=== PATIENT | female | born 1945 | race Caucasian/White ===

== ENCOUNTER → 2018-07-13 09:06 | Outpatient (CLI) | payer MEDICARE, OTHER, SELFPAY ==
[2018-07-13 10:16] LABS: Add Manual Diff / Slide Review NO; Basophils Percent Auto 0.5 % (0-2); Eosinophils Percent Auto 2.8 % (2-4); Hematocrit 39.8 % (36-46); Hemoglobin 13.4 g/dL (12.0-16.0); Lymphocytes Percent Auto 21.1 % (25-40); Mean Corpuscular HGB Conc 33.6 % (30-36); Mean Corpuscular Hemoglobin 30.3 PG (26-34); Monocytes Percent Auto 6.4 % (3-14); Neutrophils Absolute Auto 4700 /uL (3000-5900); Neutrophils Percent Auto 69.2 % (50-75); Platelet Count 322 X10^3/uL (150-400); Red Blood Cell Count 4.42 X10^6/uL (4.0-5.2); Red Cell Distribution Width 13.3 % (11.6-14.8); White Blood Cell Count 6.8 X10^3/uL (4.5-11.0)
[2018-07-13 10:49] LABS: Alanine Aminotransferase 27 IU/L (9-52); Albumin 4.4 g/dL (3.5-5.0); Albumin Globulin Ratio 1.2 (1.0-2.8); Alkaline Phosphatase 125 U/L (38-126); Aspartate Aminotransferase 20 IU/L (14-36); BUN Creatinine Ratio 20.8 (6-22); Bilirubin Total 0.5 mg/dL (0.2-1.3); Blood Urea Nitrogen 25 mg/dL (7-17); Calcium 9.3 mg/dL (8.4-10.2); Carbon Dioxide 33 mmol/L (22-32); Chloride 102 mmol/L (98-107); Cholesterol 203 mg/dL (140-199); Estimated Glomerular Filt Rate 43.9 mL/min (>60); Globulin 3.8 g/dL (1.7-4.1); Glucose 95 mg/dL (80-110); HDL Cholesterol 50 mg/dL (40-60); HEMOLYSIS < 15 (0-50); LDL Cholesterol Calculated 124 mg/dL (<100); Sodium 145 mmol/L (137-145); Total Protein 8.2 g/dL (6.3-8.2); Triglycerides 147 mg/dL (35-150)
[2018-07-13 11:11] LABS: TSH w/ Reflex to FT4 2.56 uIU/mL (0.47-4.68)
== END ==
PROVIDERS: PCP Family Medicine; Visit Provider Family Medicine
DX: I10 Essential (primary) hypertension (principal)
CPT/HCPCS: 36415; 80053; 80061; 84443; 85025

== ENCOUNTER → 2019-09-17 10:50 | Outpatient (CLI) | payer MEDICARE, OTHER, SELFPAY ==
--- NOTE | 2019-09-24 08:41 | P.PFT.S_ITS ---
Pulmonary Function Test Referral & Results Date Patient Seen: 09/17/19 Requesting provider: Roberto Bruner Results: The spirometry demonstrates an FVC of 1.69 L which is 57% of predicted. The FEV1 was measured at 1.40 L which is 63% of predicted. The FEV1/FVC ratio was 83 which is 110% of predicted. Following the administration of bronchodilator there was very limited evidence of any benefit but there is an 18% improvement in FEF 25-75%. Lung volumes show an SVC of 1.60 L which is 55% of predicted. The diffusing capacity was measured at 13.32 which is 52% of predicted. The maximum voluntary ventilation was severely reduced Interpretation: This study demonstrates moderately severe obstructive lung disease based on reduction FEV1 with perhaps very minimal evidence of benefit following bro nchodilator as above. There is also moderately severe reduction in SVC suggesting moderately severe restrictive lung disease There is also a significant reduction in diffusing capacity suggesting si gnificant disease at the capillary alveolar level Altogether this is consistent with a diagnosis of COPD Compared to PFTs performed in February 2013, current spirometry suggests slight decline in FEV1 more significant decline in SVC suggesting more significant restrictive lung disease and similar numbers for diffusing capacity
== END ==
PROVIDERS: PCP Family Medicine; Visit Provider Family Medicine
DX: R06.02 Shortness of breath (principal)
CPT/HCPCS: 94060; 94726; 94729

== ENCOUNTER → 2019-09-24 09:14 | Outpatient (CLI) | payer MEDICARE, OTHER, SELFPAY ==
--- NOTE | 2019-09-24 09:44 | DI.RAD.S_ITS ---
PROCEDURE: XR CHEST 2V INDICATIONS: cough short of breath TECHNIQUE: 2 views of the chest were acquired. COMPARISON: [facility], , CHEST 2 VIEW, 10/08/2012, 11:11. FINDINGS: Surgical changes and devices: None. Lungs and pleura: Scattered subsegmental atelectasis and/or scarring. No focal consolidation. No pleural effusions or pneumothorax. Mediastinum: Mediastinal contours are normal. Heart size is normal. Bones and chest wall: No suspicious bony abnormalities. Scoliosis and scattered discogenic changes. Soft tissues appear unremarkable. IMPRESSION: No acute disease Dictated by: Jackson Hills M.D. on 09/24/2019 at 11:15 Approved by: Jackson Hills M.D. on 09/24/2019 at 11:19
[2019-09-24 10:05] LABS: Add Manual Diff / Slide Review NO; Basophils Absolute Auto 100 /uL (0-100); Basophils Percent Auto 0.7 % (0-2); Eosinophils Absolute Auto 300 /uL (0-450); Eosinophils Percent Auto 4.7 % (2-4); Hematocrit 35.4 % (36-46); Hemoglobin 11.6 g/dL (12.0-16.0); Lymphocytes Absolute Auto 800 /uL (1100-4500); Lymphocytes Percent Auto 10.9 % (25-40); Mean Corpuscular HGB Conc 32.7 % (30-36); Mean Corpuscular Hemoglobin 29.4 PG (26-34); Monocytes Absolute Auto 500 /uL (0-900); Monocytes Percent Auto 7.2 % (3-14); Neutrophils Absolute Auto 5400 /uL (1500-7000); Neutrophils Percent Auto 76.5 % (50-75); Platelet Count 299 X10^3/uL (150-400); Red Blood Cell Count 3.93 X10^6/uL (4.0-5.2); Red Cell Distribution Width 13.5 % (11.6-14.8); White Blood Cell Count 7.1 X10^3/uL (4.5-11.0)
[2019-09-24 10:22] LABS: B Type Natriuretic Peptide < 100 (<100)
[2019-09-24 10:57] LABS: Alanine Aminotransferase 30 IU/L (<35); Albumin 4.1 g/dL (3.5-5.0); Albumin Globulin Ratio 1.1 (1.0-2.8); Alkaline Phosphatase 326 U/L (38-126); Aspartate Aminotransferase 30 IU/L (14-36); BUN Creatinine Ratio 16.1 (6-22); Bilirubin Total 0.5 mg/dL (0.2-1.3); Blood Urea Nitrogen 29 mg/dL (7-17); Calcium 9.4 mg/dL (8.4-10.2); Carbon Dioxide 27 mmol/L (22-32); Chloride 101 mmol/L (98-107); Cholesterol 211 mg/dL (140-199); Estimated Glomerular Filt Rate 27.4 mL/min (>60); Globulin 3.7 g/dL (1.7-4.1); Glucose 111 mg/dL (80-110); HDL Cholesterol 39 mg/dL (40-60); HEMOLYSIS < 15 (0-50); LDL Cholesterol Calculated 140 mg/dL (<100); Potassium 5.2 mmol/L (3.4-5.1); Sodium 137 mmol/L (137-145); Total Protein 7.8 g/dL (6.3-8.2); Triglycerides 158 mg/dL (35-150)
[2019-09-24 11:28] LABS: TSH w/ Reflex to FT4 2.95 uIU/mL (0.47-4.68)
== END ==
PROVIDERS: PCP Family Medicine; Visit Provider Family Medicine
DX: I10 Essential (primary) hypertension (principal); R06.02 Shortness of breath; R05 Cough
CPT/HCPCS: 36415; 71046; 80053; 80061; 83880; 84443; 85025

== ENCOUNTER → 2019-10-05 07:55 | Outpatient (CLI) | payer MEDICARE, OTHER, SELFPAY ==
--- NOTE | 2019-10-05 07:57 | DI.ECHO.S_ITS ---
[facility]---------+ [facility] +---------+ : : [address] : : : : [id number] : : : : Phone: [phone] Echocardiogram Report + + :Name: BLANCA AGUILERA Study Date: 10/05/2019 Height: 64 in : :[facility] Weight: 200 lb : : Gender: Female BSA: 2.0 m2 : :: 1945 Age: 74 yrs BP: 136/84 mmHg: :Reason For Study: Hypertension : :Ordering Physician: Dr. Mejia : :Franc Performed By: Prieto Ward : :Referring: FLOYD CURTIS : + + Interpretation Summary The left ventricle is normal in size. The ejection fraction is estimated to be 60-65%. The right ventricle is normal in size and function. No significant valvular pathology seen. Procedure: A two-dimensional transthoracic echocardiogram with color flow and Doppler was performed. The study quality was technically adequate. There is no prior echocardiogram noted for this patient. The patient was in normal sinus rhythm during the exam. Left Ventricle: The left ventricle is normal in size. Proximal septal thickening is noted. There is no echo evidence for significant left ventricular outflow tract obstruction. There is no thrombus. Left ventricular systolic function is normal. The ejection fraction is estimated to be 60-65%. Left ventricular wall motion is normal. Diastolic parameters suggest a relaxation abnormality of the left ventricle, consistent with probable normal filling pressures. Right Ventricle: The right ventricle is normal in size and function. Atria: The left atrium is borderline dilated. Right atrial size is normal. The interatrial septum is intact with no evidence for an atrial septal defect. Mitral Valve: The mitral valve leaflets appear mildly thickened, but open well. There is mild mitral annular calcification. The mitral valve chordae are thickened and/or calcified. There is trace mitral regurgitation. Aortic Valve: The aortic valve is trileaflet. There is mild aortic valve sclerosis. There is discrete nodular thickening of the non- coronary cusp. There is no aortic valve stenosis. There is trace aortic regurgitation. Tricuspid Valve: The tricuspid valve is normal in structure and function. There is trace tricuspid regurgitation. Pulmonary artery pressures cannot be estimated because of the lack of a measurable TR jet velocity. Pulmonic Valve: The pulmonic valve is not well visualized. There is trace pulmonic regurgitation. Great Vessels: The aortic root is normal size. The dimensions of the ascending aorta are normal. The pulmonary artery is normal size. The inferior vena cava was not visualized. Pericardium/ Pleura There is no pericardial effusion. There is no pleural effusion. MMode/2D Measurements & Calculations LVIDd: 4.2 cm LVOT diam: 1.9 cm LVIDs: 2.5 cm Ao root diam: 3.0 cm FS: 40.7 % EPSS: 0.57 cm IVSd: 1.2 cm LVPWd: 1.1 cm LV sinclair. diameter/BSA (cm/m^2): 2.1 LV sys. diameter/BSA (cm/m^2): 1.3 LA A2 area: 20.1 cm2 RA long axis: 4.0 cm LA A4 area: 19.3 cm2 RA area: 11.5 cm2 LA length (vol): 5.1 cm RA vol: 27.9 ml LA vol: 64.0 ml RA : 14.3 ml/m2 LA vol index: 32.7 ml/m2 TAPSE: 2.1 cm Doppler Measurements & Calculations Ao V2 max: 117.0 cm/sec LVOT Max Niall: 104.4 cm/sec Ao V2 mean: 85.1 cm/sec LV V1 max P.4 mmHg Ao max P.5 mmHg LV V1 VTI: 26.2 cm Ao mean P.3 mmHg PRESLEY(I,D): 2.7 cm2 Ao V2 VTI: 28.3 cm PRESLEY(V,D): 2.6 cm2 sev ratio: 0.93 PRESLEY indexed to BSA (cm^2/m^2): 1.4 MV E max niall: 71.5 cm/sec PA V2 max: 76.6 cm/sec MV A max niall: 90.8 cm/sec PA V2 mean: 54.7 cm/sec MV E/A: 0.79 PA mean P.4 mmHg Med Peak E' Niall: 6.1 cm/sec PA Accel Time: 0.12 sec E/E' med: 11.7 Lat Peak E' Niall: 8.2 cm/sec E/E' lat: 8.7 E/e' average: 10.2 MV dec time: 0.19 sec SV(LVOT): 75.3 ml Reading Physician:01:22 PM
--- NOTE | 2019-10-05 08:05 | DI.CT.S_ITS ---
PROCEDURE: CT CHEST HIGH RESOLUTION INDICATIONS: chronic cough and interstitial restriction TECHNIQUE: Noncontrast 1.0 and 5.0 mm thick contiguous axial sections from the pulmonary apex to the posterior costophrenic angles, with 7 mm thick coronal and sagittal MIP reformats. 1 mm thick dynamic expiratory images acquired through the upper, mid, and lower lungs. 1.0 mm thick axial sections acquired from the tina to the posterior costophrenic angles in the prone end-inspiration position. For radiation dose reduction, the following was used: automated exposure control, adjustment of mA and/or kV according to patient size. COMPARISON: [facility], , CHEST 2 VIEW, 10/08/2012, 11:11. [facility], , XR CHEST 2V, 09/24/2019, 9:41. FINDINGS: Image quality: Excellent. Lungs: Subpleural septal thickening and early pulmonary fibrosis. No air trapping or bronchiectasis. No acute pulmonary opacity. No pleural effusion or pneumothorax. Pleura: No pleural effusions or pneumothorax. Mediastinum: Heart size is normal. No pericardial effusion. Thoracic aorta and central pulmonary arteries are normal in size. Esophagus is normal in caliber. There is a small hiatal hernia. Bones and chest wall: No suspicious bony lesions. No vertebral body compression fractures. There is a 1 cm nodule in the right thyroid lobe and a 4 mm in the left thyroid lobe. Abdomen: Small indeterminate low density nodules are noted in spleen. IMPRESSION: 1.Subpleural septal thickening and early pulmonary fibrosis suggesting interstitial pneumonia such as UIP. 2. Bilateral thyroid nodules. Thyroid ultrasound is suggested for followup. 3. Small indeterminate hypodensities in spleen. Statistically, these are probably cysts. Dictated by: Audrey Vail M.D. on 10/05/2019 at 16:20 Approved by: Audrey Vail M.D. on 10/05/2019 at 18:07
== END ==
PROVIDERS: PCP Family Medicine; Visit Provider Family Medicine
DX: I35.8 Other nonrheumatic aortic valve disorders (principal); R05 Cough; J84.10 Pulmonary fibrosis, unspecified; R06.02 Shortness of breath; I10 Essential (primary) hypertension; K44.9 Diaphragmatic hernia without obstruction or gangrene; E04.2 Nontoxic multinodular goiter
CPT/HCPCS: 71250; 93306

== ENCOUNTER → 2019-10-19 13:34 | Outpatient (CLI) | payer MEDICARE, OTHER, SELFPAY ==
--- NOTE | 2019-10-19 13:37 | DI.NM.S_ITS ---
PROCEDURE: NM PIERRE PERF SPECT REST & STR Rest and exercise myocardial perfusion SPECT with gated imaging and ejection fraction RADIOPHARMACEUTICAL: 19.7 mCi Tc-99m sestamibi IV at rest and 26.1 mCi Tc-99m sestamibi IV at peak exercise. A 0-zip-valdzkii was performed. INDICATIONS: sob,htn TECHNIQUE: Radiopharmaceutical was injected at peak stress test, and also at rest. SPECT images were obtained. SPECT myocardial perfusion images were displayed in short axis, horizontal long axis, and vertical long axis views. Gated images were reviewed using [employer] software. COMPARISON: None. CARDIAC STRESS: A standard Benedict treadmill exercise tolerance test was performed by the patient under the supervision of an attending staff. The patient exercised for 2 minutes and 42 seconds; functional aerobic impairment (AIYANA) is +30 %. Hemodynamic data: Patient was tachycardic and hypertensive at baseline with heart rate of 114 bpm and blood pressure of 178/82. There is appropriate blood pressure and heart rate response to exercise stress but with baseline hypertension, the peak exercise blood pressure was 252/98 mmHg. Patient achieved 112% of maximum predicted heart rate at peak exercise and 4.6 METS. Symptoms: Patient had chest pressure with exercise. EKG: No diagnostic EKG changes of ischemia; Occasional PVCs. FINDINGS: Raw data: There is good myocardial labeling by radiotracer. No significant motion artifacts. Ayje-yg-nbija ratio is 0.36 (normal is less than 0.38 for sestamibi tracer, and less than 0.50 for thallium tracer). Left ventricle function: Gated images demonstrate normal left ventricle wall thickening. No segmental wall motion abnormality. No transient ischemic dilation; TID is 0.69 (normal less than 1.3). The left ventricle resting end-diastolic volume is 78 mL. Left ventricle stress ejection fraction is >75%; normal values are above 45%. Myocardial perfusion: There is a small, mild perfusion defect involving the apic septal, apical anterior and mid anterior wall on rest and stress supine which resolves on prone imaging; There is also reduced tracer uptake on mid-apical lateral wall on supine images which resolves on prone imaging. Otherwise there is normal distribution of activity in the left ventricular myocardium. No fixed or reversible perfusion defects. IMPRESSION: -No reversible or fixed defect to indicate ischemia or scar. -Impaired exercise capacity and chest pressure with exercise. -Baseline hypertension with significant hypertension with exercise. -Rapid increase in heart rate and AIYANA of 30% indicate deconditioning. -Artifacts on supine imaging as described above. -Despite no perfusion defect, I believe this is a moderate risk study given poor exercise tolerance and significant hypertension. Dictated by: Uvaldo Pressley M.D. on 10/21/2019 at 16:23 Approved by: Uvaldo Pressley M.D. on 10/21/2019 at 16:35
--- NOTE | 2019-10-19 15:03 | PM.TREADMILL ---
Cardiac Stress Test Report Referral & Results Date Patient Seen: 10/19/19 Requesting provider: Roberto Bruner Indication: Chest pressure, shortness of breath Rest ECG: Unremarkable Procedure Note: Today following both written and verbal informed consent the patient was exercised according to a standard Benedict protocol patient went for a total of 2 minutes 42 seconds achieving a maximum heart rate of 163 maximum systolic blood pressure of 252. This is approximately 4.6 METS. Exercise was terminated at this point because of severe dyspnea and inability the patient to continue or walk any faster. Patient was also given Cardiolite through a previously started Hep-Lock IV by the diagnostic imaging staff approximately 1 minute prior to the cessation of exercise. There are no ST-T segment changes identified Occasional PVC Functional aerobic impairment rates about 30% on the sedentary scale Somewhat hypertensive response to exercise Impression: No ECG evidence of ischemia Limited exercise capacity as above Please see perfusion imaging report as well Please note: Actual ECG tracings can be found in the PACS system.
== END ==
PROVIDERS: PCP Family Medicine; Visit Provider Family Medicine
DX: R07.89 Other chest pain (principal); R06.02 Shortness of breath; I10 Essential (primary) hypertension
CPT/HCPCS: 78452; 93016; 93017; 93018; A9502

== ENCOUNTER → 2019-11-02 16:04 | Outpatient (CLI) | payer MEDICARE, OTHER, SELFPAY ==
--- NOTE | 2019-11-02 16:25 | DI.RAD.S_ITS ---
PROCEDURE: XR KNEE LT 3V INDICATIONS: knee pain TECHNIQUE: 3 views of the knee were acquired. COMPARISON: None. FINDINGS: Bones: No fractures or dislocations. No suspicious bony lesions. Severe medial joint space narrowing. Scattered degenerative subchondral sclerosis and spurring. Soft tissues: No joint effusion. No suspicious soft tissue calcifications. IMPRESSION: Severe left knee joint degeneration, most pronounced the medial compartment. Dictated by: Jackson Hills M.D. on 11/02/2019 at 17:55 Approved by: Jackson Hills M.D. on 11/02/2019 at 17:56
== END ==
PROVIDERS: PCP Family Medicine; Visit Provider Family Medicine
DX: M25.562 Pain in left knee (principal); M17.12 Unilateral primary osteoarthritis, left knee
CPT/HCPCS: 73562

== ENCOUNTER → 2019-11-19 09:08 | Outpatient (CLI) | payer MEDICARE, OTHER, SELFPAY ==
[2019-11-19 11:05] LABS: BUN Creatinine Ratio 12.3 (6-22); Blood Urea Nitrogen 16 mg/dL (7-17); Calcium 9.6 mg/dL (8.4-10.2); Carbon Dioxide 26 mmol/L (22-32); Chloride 104 mmol/L (98-107); Estimated Glomerular Filt Rate 39.9 mL/min (>60); Glucose 114 mg/dL (80-110); HEMOLYSIS < 15 (0-50); Potassium 4.8 mmol/L (3.4-5.1); Sodium 139 mmol/L (137-145)
== END ==
PROVIDERS: PCP Family Medicine; Referring Provider Family Medicine; Visit Provider Family Medicine
DX: N18.3 Chronic kidney disease, stage 3 (moderate) (principal)
CPT/HCPCS: 36415; 80048

== ENCOUNTER → 2020-01-24 14:09 | Outpatient (CLI) | payer MEDICARE, OTHER, SELFPAY ==
[2020-01-24 14:34] LABS: Hematocrit 37.3 % (36-46); Hemoglobin 12.3 g/dL (12.0-16.0); Mean Corpuscular HGB Conc 33.1 % (30-36); Mean Corpuscular Hemoglobin 29.1 PG (26-34); Mean Corpuscular Volume 87.9 fL (80-100); Platelet Count 376 X10^3/uL (150-400); Red Blood Cell Count 4.24 X10^6/uL (4.0-5.2); White Blood Cell Count 7.7 X10^3/uL (4.5-11.0)
[2020-01-24 14:45] LABS: Neutrophils Absolute Manual 6237 /uL (3000-5900); RBC Morphology Normal Morphology; Total Cells Counted 100
[2020-01-24 14:49] LABS: Erythrocyte Sedimentation Rate 59 MM/HR (0-20)
[2020-01-24 15:16] LABS: BUN Creatinine Ratio 23.3 (6-22); Blood Urea Nitrogen 38 mg/dL (7-17); Carbon Dioxide 21 mmol/L (22-32); Chloride 108 mmol/L (98-107); Estimated Glomerular Filt Rate 30.8 mL/min (>60); Glucose 114 mg/dL (80-110); HEMOLYSIS < 15 (0-50); Sodium 138 mmol/L (137-145)
[2020-01-24 16:12] LABS: TSH w/ Reflex to FT4 4.32 uIU/mL (0.47-4.68)
[2020-01-24 17:20] LABS: Creatine Kinase 4863 U/L (30-135)
[2020-01-26 10:36] LABS: ANA Screen, IFA Positive (.)
== END ==
PROVIDERS: PCP Family Medicine; Referring Provider Family Medicine; Visit Provider Family Medicine
DX: J44.9 Chronic obstructive pulmonary disease, unspecified (principal); J84.10 Pulmonary fibrosis, unspecified; M25.50 Pain in unspecified joint; R53.83 Other fatigue; R25.1 Tremor, unspecified; R51 Headache
CPT/HCPCS: 36415; 80048; 82550; 84443; 85025; 85651; 86038; 86140

== ENCOUNTER → 2020-01-27 12:29 | Outpatient (CLI) | payer MEDICARE, OTHER, SELFPAY ==
--- NOTE | 2020-01-27 12:31 | DI.MRI.S_ITS ---
PROCEDURE: MR FEMUR RT WO CON INDICATIONS: weakness/myalgias TECHNIQUE: Noncontrast coronal and sagittal T1 spin echo and STIR; axial T1 spin echo and T2 fast spin echo with fat saturation through the right femur. COMPARISON: [facility], MR, MR FEMUR LT WO CON, 01/27/2020, 13:02. FINDINGS: Image quality: Excellent. Bones: The visualized bone marrow demonstrates normal signal on all sequences. The overlying cortex appears intact. No fractures lines or intra-osseous lesions. Soft tissues: There is diffuse muscle edema involving the right hip adductor compartment primarily involving the adductor longus, adductor brevis, obturator internus muscles. There is also ill-defined edema present within the rectus femoris muscle. No definite asymmetric muscle atrophy identified. Loculated appearing fluid present within the posterior pelvis of unknown etiology or location IMPRESSION: Diffuse muscle edema involving the right rectus femoris, obturator internus, adductor longus and adductor brevis which could be related to posttraumatic strain, denervation, or myositis of unspecified etiology. Please see comparison contralateral left femur MRI for additional findings. Prominent posterior pelvic fluid which could be related to large pelvic cystic lesion versus loculated ascites. This is incompletely evaluated on the current examination and only partially visualized. Recommend followup with dedicated pelvic CT or ultrasound Dictated by: Jackson Hills M.D. on 01/27/2020 at 15:31 Approved by: Jackson Hills M.D. on 01/27/2020 at 15:36
--- NOTE | 2020-01-27 12:31 | DI.MRI.S_ITS ---
PROCEDURE: MR FEMUR LT WO CON INDICATIONS: weakness/myalgias TECHNIQUE: Noncontrast coronal and sagittal T1 spin echo and STIR; axial T1 spin echo and T2 fast spin echo with fat saturation through the left femur. COMPARISON: None. FINDINGS: Image quality: Excellent. Bones: The visualized bone marrow demonstrates normal signal on all sequences. The overlying cortex appears intact. No fractures lines or intra-osseous lesions. Soft tissues: There is diffuse muscle edema involving the hip adductor compartment, including the adductor longus, brevis bilaterally. There is asymmetric muscle edema present within the left adductor aminata, compared to the right. No definite muscle atrophy is seen. The sciatic nerve grossly unremarkable. Within the visualized pelvis, there is large amount of loculated posterior pelvic fluid versus cystic lesion which is incompletely evaluated. IMPRESSION: Bilateral diffuse muscle edema primarily involving the hip adductor musculature, including the adductor longus and brevis muscles bilaterally, and the left adductor aminaat. Differential includes posttraumatic strain, denervation, myositis of unclear origin Loculated appearing fluid present within the visualized pelvis which is incompletely evaluated and technically indeterminate. A cystic neoplastic lesion cannot be excluded, versus loculated ascites, or potentially within bowel loop. Recommend further evaluation with pelvic ultrasound or CT. Dictated by: Jackson Hills M.D. on 01/27/2020 at 14:27 Approved by: Jackson Hills M.D. on 01/27/2020 at 14:40
[2020-01-27 15:23] LABS: Lactate Dehydrogenase 2102 U/L (313-618)
[2020-01-27 15:56] LABS: Creatine Kinase 4609 U/L (30-135)
[2020-01-28 23:07] LABS: Aldolase 21.9 U/L (3.3-10.3)
--- NOTE | 2020-02-14 10:57 | ONC.MSW ---
Description: Initial Referral Navigation T/C Reason for Referral: Advanced Metastatic Ovarian Cancer Activity: Called pt to confirm that we've received her referral, spoke with her . Pt is suspected to have advanced ovarian cancer, based on MRI imaging done 01/28/20. She was normally functioning until around [place], when she began experiencing advancing pain, debilitating fatigue, and rash. She is scheduled for a paracentesis on Friday of this week, which will be run for pathological diagnosis. Dr. Delaney is recommending neoadjuvant chemotherapy, however, pt's spouse shared that pt is not completely sure at this stage whether or not she will pursue tx, and her decision will depend o the pathology results and how advanced her disease is. She and spouse have made it very clear that her primary goal is quality of life, and are wanting to wait to schedule an initial Oncology consult until after she has met with Dr. Delaney to discuss the final results. [facility] [employer] arranged to call pt/spouse next , 02/23 to discuss their final decision and goals moving forward.
== END ==
PROVIDERS: PCP Family Medicine; Referring Provider Family Medicine; Visit Provider Family Medicine
DX: M62.81 Muscle weakness (generalized) (principal); R25.1 Tremor, unspecified; R53.83 Other fatigue; R60.0 Localized edema
CPT/HCPCS: 36415; 73718; 82085; 82550; 83615

== ENCOUNTER → 2020-02-22 13:13 | Outpatient (CLI) | payer MEDICARE, OTHER, SELFPAY ==
[2020-02-22 15:12] LABS: Add Manual Diff / Slide Review NO; Basophils Absolute Auto 100 /uL (0-100); Basophils Percent Auto 0.8 % (0-2); Eosinophils Absolute Auto 100 /uL (0-450); Eosinophils Percent Auto 1.4 % (2-4); Hematocrit 33.6 % (36-46); Hemoglobin 11.3 g/dL (12.0-16.0); Lymphocytes Absolute Auto 400 /uL (1100-4500); Lymphocytes Percent Auto 4.4 % (25-40); Mean Corpuscular HGB Conc 33.7 % (30-36); Mean Corpuscular Hemoglobin 30.1 PG (26-34); Mean Corpuscular Volume 89.4 fL (80-100); Monocytes Absolute Auto 600 /uL (0-900); Monocytes Percent Auto 7.5 % (3-14); Neutrophils Absolute Auto 7200 /uL (1500-7000); Neutrophils Percent Auto 85.9 % (50-75); Platelet Count 235 X10^3/uL (150-400); Red Blood Cell Count 3.75 X10^6/uL (4.0-5.2); Red Cell Distribution Width 16.8 % (11.6-14.8); White Blood Cell Count 8.3 X10^3/uL (4.5-11.0)
[2020-02-22 15:17] LABS: Hemoglobin A1C% w Est Avg Glu 5.5 % (4.0-6.0)
[2020-02-22 15:36] LABS: Alanine Aminotransferase 101 IU/L (<35); Albumin 3.5 g/dL (3.5-5.0); Albumin Globulin Ratio 1.1 (1.0-2.8); Alkaline Phosphatase 205 U/L (38-126); Aspartate Aminotransferase 82 IU/L (14-36); BUN Creatinine Ratio 15.8 (6-22); Bilirubin Total 0.7 mg/dL (0.2-1.3); Blood Urea Nitrogen 19 mg/dL (7-17); Calcium 8.3 mg/dL (8.4-10.2); Carbon Dioxide 35 mmol/L (22-32); Chloride 91 mmol/L (98-107); Estimated Glomerular Filt Rate 43.8 mL/min (>60); Globulin 3.3 g/dL (1.7-4.1); Glucose 101 mg/dL (80-110); HEMOLYSIS < 15 (0-50); Potassium 3.3 mmol/L (3.4-5.1); Sodium 134 mmol/L (137-145); Total Protein 6.8 g/dL (6.3-8.2)
== END ==
PROVIDERS: PCP Family Medicine; Referring Provider Family Medicine; Visit Provider Family Medicine
DX: J84.10 Pulmonary fibrosis, unspecified (principal); N18.2 Chronic kidney disease, stage 2 (mild); R73.9 Hyperglycemia, unspecified; Z13.1 Encounter for screening for diabetes mellitus
CPT/HCPCS: 36415; 80053; 83036; 85025